=== PATIENT | male | born 1975 | race Caucasian/White ===

== ENCOUNTER 2017-03-05 15:08 | Inpatient (IN) | payer SELFPAY ==
[2017-03-05] MEDS ORDERED: Nicotine 21 MG PATCH TOP SCH (16:00)
[2017-03-05 16:07] LABS: #Basophils 0.1 thou/uL (0.0-0.2); #Eosinphils 0.2 thou/uL (0.0-0.7); #Lymphocytes 2.1 thou/uL (1.20-3.40); #Monocytes 0.7 thou/uL (0.11-0.59); #Neutrophils 4.9 thou/uL (1.40-6.50); %Basophils 0.7 % (0.0-1.0); %Eosinophils 2.3 % (0.0-10.0); %Lymphocytes 26.6 % (21.0-51.0); %Monocytes 8.9 % (0.0-10.0); %Neutrophils 61.6 % (42.0-75.0); Hemoglobin 15.8 g/dL (14.0-18.0); Mean Corpuscular HGB CONC 33.7 g/dL (32.0-36.0); Mean Corpuscular Hemoglobin 33.7 pg (27.0-31.0); Mean Corpuscular Volume 99.8 fl (80.0-94.0); Mean Platelet Volume 5.7 fL (7.4-10.4); Platelet Count 417 thou/uL (130-400); RBC Distribution Width 12.2 % (11.5-14.5); Red Blood Cell (RBC) Count 4.68 mill/uL (4.70-6.10)
[2017-03-05 16:29] LABS: ALT (SGPT) 21 U/L (8-55); AST (SGOT) 18 U/L (5-34); Albumin 3.9 g/dL (3.5-5.0); Alcohol Less than 10 mg/dL (Less than 10); Alkaline Phosphatase 44 U/L (40-150); Anion Gap 12 mmol/L (10-20); BUN (Urea Nitrogen) 18 mg/dL (8.9-20.6); Bilirubin, Total 0.8 mg/dL (0.2-1.2); Calc. Creatinine Clearance 0 mL/min (70-130); Calcium 9.4 mg/dL (7.8-10.44); Carbon Dioxide 24 mmol/L (22-29); Chloride 102 mmol/L (98-107); Estimated GFR-MDRD Greater than 90; Globulin 3.1 g/dL (2.4-3.5); Glucose 96 mg/dL (70-105); Potassium 4.4 mmol/L (3.5-5.1); Sodium 134 mmol/L (136-145)
[2017-03-05] MEDS ORDERED: Lorazepam 2 MG/ML VIAL ONE (20:38)
[2017-03-05] MEDS ORDERED: Multivitamins, Adult 10 ML, Folic Acid 1 MG, Thiamine HCl 100 MG in Dextrose 5 %-0.45 %... IV SCH ×2 (21:30→23:59)
--- NOTE | 2017-03-05 21:31 | HP ---
CHIEF COMPLAINT: Suicidal ideation and alcohol withdrawal. Transfer from [facility] ER. HISTORY OF PRESENT ILLNESS: He is a 41-year-old male with a history of depression and anxiety. He h as some suicidal ideation few days ago and went to [facility] ER. He was held over there for p sych reason and was transferred here today because he has DTs. He has been drinking heavily in the p ast for last 3 days in the ER, he went to DTs, he came into the hospital. Further questioning ask tresa arianna, he said he is thinking of killing himself by hanging and he was off Prozac medication for a couple of weeks, I could not afford the medication. He denies any psych facility admission in the past. H e denies any nausea, vomiting and fever. Vital signs in the ER, his pulse is 98, blood pressure 129/ 94, respirations 17, temperature 98.4. Medicine he takes at home Prozac 20 mg daily, trazodone 100 m g, Neurontin 300 mg daily. PAST MEDICAL HISTORY: History of hypertension, anxiety, depression. He has previous history of suic margarito attempt by hanging in summer 2016, admission at [facility]. SOCIAL HISTORY: Drinks every day, heavy drinker, about a pack beer, whiskey, vodka, marijuana use an d amphetamine use, tobacco abuse. FAMILY HISTORY: Reviewed and not pertinent to current illness. REVIEW OF SYSTEMS: HEENT: He denies any eye pain, eye discharge, any ear ache or vision problem. M usculoskeletal: He denies any neck pain or musculoskeletal pain. Respiration: Denies any cough, sh ort of breath or any chest pain. Cardiovascular: Denies any palpitation or any arrhythmias. Abdomen : He denies nausea or vomiting. PHYSICAL EXAMINATION: GENERAL: Alert, oriented, but he is shaky, tremulous. Gait, unable to check. When examined him, he is a young man lying in the bed in no distress. VITAL SIGNS: Pulse is 86, blood pressure 132/92, respiratory rate 14, temperature 98.4 and sats are 99% on room air. HEENT: Head is atraumatic, normocephalic. Pupils are round, reactive. Extraocular muscles intact. NECK: Supple, no JVD, no thyromegaly, no carotid bruit. Trachea midline. CHEST: Normal vascular breathing. No added sound, no rhonchi, no wheezing, no crackles. CARDIOVASCULAR: S1, S2 audible. No S4. No murmur, no gallop. ABDOMEN: Soft. Bowel sounds audible. No tenderness in epigastrium. No masses palpable. EXTREMITIES: No pedal edema, no cyanosis, no clubbing. NEUROLOGIC: Alert and oriented x3. No focal deficit. He is tremulous. Normal speech, normal memor y. LABORATORY DATA: Shows alcohol level was less than 10. Sodium 134, potassium 4.4, chloride 102, car bon dioxide is 24, anion gap 12, BUN 18, creatinine 0.82, glucose 96, calcium 9.4, bilirubin 0.8, alb umin 3.9, globulin 3.1, AST 18, ALT 21. White blood count 8.0, hemoglobin is 15.8, hematocrit 46.7, MCV 99.8, platelets 417, mean platelet volume 5.7. ASSESSMENT AND PLAN: Alcohol withdrawal syndrome with history of chronic abuse. Continue IV fluid D 5 with thiamine, folic acid, banana bag, Ativan p.r.n. for the alcohol withdrawal, CIWA protocol. History of depression, anxiety with suicidal ideation. We will put in ICU. Continue Prozac and Neur ontin and we can monitor him. Deep venous thrombosis prophylaxis with Lovenox. We have also called the consultation of [facility] for the inpatient psych evaluation and suicide precautions, admit to ICU.
[2017-03-05] MEDS ORDERED: HYDROcodone/Acetaminophen 5/325 mg Tablet PO PRN (23:19)
[2017-03-05] MEDS ORDERED: Famotidine 20 MG TAB PO SCH (23:30)
[2017-03-06] MEDS: Dextrose 5% w/ 20 mEq KCl 1,000 ML IV SCH ×2 (00:44→11:34)
[2017-03-06 04:28] LABS: #Eosinphils 0.2 thou/uL (0.0-0.7); #Lymphocytes 1.8 thou/uL (1.20-3.40); #Monocytes 0.6 thou/uL (0.11-0.59); %Basophils 0.8 % (0.0-1.0); %Eosinophils 2.8 % (0.0-10.0); %Lymphocytes 32.5 % (21.0-51.0); %Monocytes 9.8 % (0.0-10.0); %Neutrophils 54.1 % (42.0-75.0); Hemoglobin 14.9 g/dL (14.0-18.0); Mean Corpuscular HGB CONC 34.1 g/dL (32.0-36.0); Mean Corpuscular Hemoglobin 33.9 pg (27.0-31.0); Mean Corpuscular Volume 99.5 fl (80.0-94.0); Mean Platelet Volume 5.9 fL (7.4-10.4); Platelet Count 372 thou/uL (130-400); RBC Distribution Width 12.2 % (11.5-14.5); White Blood Cell (WBC) Count 5.6 thou/uL (4.8-10.8)
[2017-03-06 04:48] VITALS: BMI 25.7
[2017-03-06 04:55] LABS: Anion Gap 11 mmol/L (10-20); BUN (Urea Nitrogen) 13 mg/dL (8.9-20.6); Calc. Creatinine Clearance 147 mL/min (70-130); Calcium 8.9 mg/dL (7.8-10.44); Carbon Dioxide 22 mmol/L (22-29); Chloride 108 mmol/L (98-107); Estimated GFR-MDRD Greater than 90; Glucose 109 mg/dL (70-105); Potassium 4.2 mmol/L (3.5-5.1); Sodium 137 mmol/L (136-145)
[2017-03-06] MEDS: Lorazepam 2 MG/ML VIAL SLOW IVP PRN ×2 (07:51→17:15)
[2017-03-06] MEDS ORDERED: Enoxaparin Sodium 40 MG/0.4 ML SYRINGE SC SCH (09:00)
[2017-03-06] MEDS ORDERED: Nicotine 14 MG PATCH TD SCH (09:00)
[2017-03-06] MEDS ORDERED: Famotidine 20 MG TAB PO SCH (09:00)
--- NOTE | 2017-03-06 13:32 | PDOC.PN ---
- Subjective Encounter Start Date: 03/06/17 Encounter Start Time: 13:40 Subjective: Patient with markedly improved shakiness, no hallucinations, no severe HTN. -: Patient a bit less depressed, but still with SI on and off. Suicide attemp -: by hanging during the summer. - Objective Resuscitation Status: Resuscitation Status FULL:Full Resuscitation MAR Reviewed: Yes Vital Signs & Weight: Vital Signs (12 hours) Temp Pulse Resp BP Pulse Ox 03/06/17 10:47 98.5 F 104 H 16 122/80 98 03/06/17 08:00 97.7 F 93 16 03/06/17 07:05 97.7 F 93 16 125/85 97 03/06/17 05:51 98.1 F 86 16 113/71 98 Weight Weight 174 lb 2.643 oz Result Diagrams: 03/06/17 04:12 03/06/17 04:12 Phys Exam - Physical Examination Constitutional: NAD HEENT: moist MMs Respiratory: no wheezing, no rales, no rhonchi, clear to auscultation bilateral Cardiovascular: RRR, no significant murmur Gastrointestinal: soft, positive bowel sounds Musculoskeletal: no edema Neurological: non-focal, moves all 4 limbs Psychiatric: A&O x 3 Dx/Plan (1) Suicidal ideation Code(s): R45.851 - SUICIDAL IDEATIONS Status: Acute (2) Alcohol withdrawal Code(s): F10.239 - ALCOHOL DEPENDENCE WITH WITHDRAWAL, UNSPECIFIED Status: Acute - Plan cont current plan of care medically stable, will have [facility] come and evaluate * . - Discharge Day Encounter end time: 14:10
[2017-03-06 15:38] VITALS: BP 138/82; TEMP 98.2
--- NOTE | 2017-03-06 18:22 | DIS ---
PRIMARY CARE PHYSICIAN: None. DIAGNOSES ON ADMISSION: 1. Alcohol withdrawal syndrome. 2. Depression and anxiety. 3. Suicidal ideation. DISCHARGE DIAGNOSES: 1. Alcohol withdrawal symptoms controlled with Ativan. 2. Depression and anxiety. 3. Suicidal ideation. SUMMARY OF HOSPITAL COURSE: This is a 42-year-old white male with a known history of depression and previous suicide attempt by hanging earlier in the year. He had increasing suicidal thoughts and nayan t in to the [place] ER on 03/02. He does drink more than a 12 pack of beer every day. After staying in the ER for a couple of days, while waiting for psychiatric placement, the patient started to have some shakiness and so he was transferred here. The patient was never severely hypertensive. He nev er had any hypertension. He was given a single dose of 2 mg of Ativan in the emergency room last nig ht around 8:00 and is not needed any medications since then has mild shakiness. No other symptoms. Patient was cleared medically for [facility] evaluation today and they just finished evaluating him and Pablo roe arranged for him to go to [facility]. DISCHARGE MANAGEMENT: Discharged to [facility]. MEDICATIONS: Librium 25 mg every 6 hours as needed for withdrawal symptoms; likely will need this fo r more than in the next 2 or 3 days. ACTIVITY: As tolerated. DIET: Regular diet. FOLLOWUP: With [facility] after [facility] discharge.
[2017-03-07] MEDS ORDERED: FLU VACC QS2017-18 36 mo. & older 0.5 ML SYRINGE IM ONE (09:00)
== END 2017-03-06 18:15 | DRG 897 ==
LOC: ERS 15:08 → T4-A 21:45
PROVIDERS: ADMIT Family Medicine; ATTEND Family Medicine
DX: F10.231 Alcohol dependence with withdrawal delirium (principal); R45.851 Suicidal ideations; F32.9 Major depressive disorder, single episode, unspecified; Y90.0 Blood alcohol level of less than 20 mg/100 ml; F41.9 Anxiety disorder, unspecified; Z91.5 Personal history of self-harm; I10 Essential (primary) hypertension; F17.210 Nicotine dependence, cigarettes, uncomplicated
CPT/HCPCS: 36415; 80048; 80053; 80307; 85025; 96374; 99406; J1650; J2060; J3411; J7042